=== PATIENT | female | born 1985 ===

== ENCOUNTER 2017-12-01 20:01 | Emergency (ER) | payer BC ==
[2017-12-01] MEDS ORDERED: Sodium Chloride 0.9% 1,000 ML IV STA (20:51)
[2017-12-01 21:05] LABS: URINE BILIRUBIN MODERATE (NEGATIVE); URINE BLOOD LARGE (NEGATIVE); URINE GLUCOSE (UA) NEGATIVE (NEGATIVE); URINE LEUKOCYTE ESTERASE SMALL Leu/uL (NEGATIVE); URINE PROTEIN 100 mg/dL (<30 mg/dL)
[2017-12-01 21:06] LABS: URINE APPEARANCE SLIGHT-CLOUDY (CLEAR); URINE COLOR YELLOW (YELLOW)
[2017-12-01 21:11] LABS: URINE EPITHELIAL CELLS MANY /hpf (0-5); URINE RBC 25 - 30 /hpf (0-2)
--- NOTE | 2017-12-01 21:18 | ED PDOC ---
Arrival/HPI - General Chief Complaint: GI Problem Time Seen by Provider: 12/01/17 20:02 Historian: Patient - History of Present Illness Narrative History of Present Illness (Text): 12/01/17 21:18 A 32 year old female with no significant past medical history presents to the emergency department complaining of nausea and vomiting since earlier today. Patient reports her daughter has similar complaints and was seen earlier. Patie nt states she was eating chicken with rice earlier today. Patient states she is feeling better presently with some mild nausea. Patient denies any fever, chills, chest pain, shortness of breath, nausea, vomiting, diarrhea, urinary symptoms, back pain, neck pain, headache, dizziness, or any other complaints. PMD: Henry Chris Time/Duration: Other (eariler today) Symptom Course: Improving Activities at Onset: Light Context: Home Past Medical History - Provider Review Nursing Documentation Reviewed: Yes - Cardiac Hx Cardiac Disorders: No - Pulmonary Hx Respiratory Disorders: No - Neurological Hx Neurological Disorder: No - HEENT Hx HEENT Disorder: No - Renal Hx Renal Disorder: No - Endocrine/Metabolic Hx Endocrine Disorders: No - Hematological/Oncological Hx Blood Disorders: No - Integumentary Hx Dermatological Disorder: No - Musculoskeletal/Rheumatological Hx Musculoskeletal Disorders: Yes Other/Comment: INFLAMMATION R FOOT - Gastrointestinal Hx Gastrointestinal Disorders: No - Genitourinary/Gynecological Hx Genitourinary Disorders: No - Psychiatric Hx Psychophysiologic Disorder: No Hx Substance Use: No - Surgical History Hx Section: Yes Family/Social History - Physician Review Nursing Documentation Reviewed: Yes Family/Social History: Unknown Family HX Smoking Status: Never Smoked Hx Alcohol Use: No Hx Substance Use: No Allergies/Home Meds Allergies/Adverse Reactions: Allergies No Known Allergies Allergy (Verified 12/01/17 22:01) Review of Systems - Physician Review All systems were reviewed & negative as marked: Yes - Review of Systems Constitutional: absent: Fevers, Night Sweats Respiratory: absent: SOB Cardiovascular: absent: Chest Pain Gastrointestinal: Nausea, Vomiting. absent: Diarrhea Genitourinary Female: absent: Urine Output Changes Musculoskeletal: absent: Back Pain, Neck Pain Neurological: absent: Headache, Dizziness Physical Exam Vital Signs Reviewed: Yes Vital Signs Temp Pulse Resp BP Pulse Ox 12/01/17 20:44 96 H 19 100 12/01/17 20:29 98.3 F 89 16 117/58 L 99 Temperature: Afebrile Blood Pressure: Hypotensive Pulse: Regular Respiratory Rate: Normal Appearance: Positive for: Well-Appearing, Non-Toxic, Comfortable Pain Distress: None Mental Status: Positive for: Alert and Oriented X 3 - Systems Exam Head: Present: Atraumatic, Normocephalic Pupils: Present: PERRL Extroacular Muscles: Present: EOMI Conjunctiva: Present: Normal Mouth: Present: Moist Mucous Membranes Neck: Present: Normal Range of Motion Respiratory/Chest: Present: Clear to Auscultation, Good Air Exchange. No: Respiratory Distress, Accessory Muscle Use Cardiovascular: Present: Regular Rate and Rhythm, Normal S1, S2. No: Murmurs Abdomen: No: Tenderness, Distention, Peritoneal Signs Back: Present: Normal Inspection Upper Extremity: Present: Normal Inspection. No: Cyanosis, Edema Lower Extremity: Present: Normal Inspection. No: Edema Neurological: Present: GCS=15, CN II-XII Intact, Speech Normal Skin: Present: Warm, Dry, Normal Color. No: Rashes Psychiatric: Present: Alert, Oriented x 3, Normal Insight, Normal Concentration Medical Decision Making ED Course and Treatment: 12/01/17 21:28 Impression: 32 year old presenting to the Emergency room complaining of nausea and vomiting. Plan: -- CBC -- Pepcid -- IV fluids -- Zofran -- Urine culture -- Reassess and disposition Progress Notes: 12/01/17 23:16 As per dye penetrant testing technician, abdominal ultrasound results shows a normal exam with no acute findings. - Lab Interpretations Lab Results: Lab Results 12/01/17 20:45: Urine HCG, Qual Negative 12/01/17 20:45: Urine Color Yellow, Urine Appearance Slight-cloudy, Urine pH 7.0, Ur Specific [place] 1.020, Urine Protein 100 H, Urine Glucose (UA) Negative, Urine Ketones Negative, Urine Blood Large H, Urine Nitrate Negative, Urine Bilirubin Moderate H, Urine Urobilinogen 1.0 H, Ur Leukocyte Esterase Small H, Urine RBC 25 - 30, Urine WBC 5 - 10, Ur Epithelial Cells Many - Medication Orders Current Medication Orders: Sodium Chloride (Sodium Chloride 0.9%) 1,000 mls @ 999 mls/hr IV .Q1H1M STA Stop: 12/01/17 21:51 Last Admin: 12/01/17 21:02 Dose: 999 mls/hr eMAR Start Stop Document 12/01/17 21:02 [facility] (Rec: 12/01/17 21:02 [email or web address]) Intravenous Solution Start Date 12/01/17 Start Time 21:02 End Date 12/01/17 End time 22:10 Total Infusion Time 68 Discontinued Medications Famotidine (Pepcid) 20 mg IVP STAT STA Stop: 12/01/17 20:52 Last Admin: 12/01/17 21:02 Dose: 20 mg IVP Administration Document 12/01/17 21:02 [facility] (Rec: 12/01/17 21:02 [email or web address]) Charges for Administration # of IVP Administrations 1 Ondansetron HCl (Zofran Inj) 4 mg IVP ONCE ONE Stop: 12/01/17 20:52 Last Admin: 12/01/17 21:02 Dose: 4 mg IVP Administration Document 12/01/17 21:02 [facility] (Rec[facility] 12[facility]01/17 21:03 [email or web address] Charges for Administration # of IVP Administrations 1 - Scribe Statement The provider has reviewed the documentation as recorded by the Laura Florentino All medical record entries made by the Eliazaribroberto were at my direction and personally dictated by me. I have reviewed the chart and agree that the record accurately reflects my personal performance of the history, physical exam, medical decision making, and the department course for this patient. I have also personally directed, reviewed, and agree with the discharge instructions and disposition. Disposition/Present on Arrival - Present on Arrival Any Indicators Present on Arrival: No History of DVT/PE: No History of Uncontrolled Diabetes: No Urinary Catheter: No History of Decub. Ulcer: No History Surgical Site Infection Following: None - Disposition Have Diagnosis and Disposition been Completed?: Yes Diagnosis: Gastritis, Nausea & vomiting Disposition: HOME/ ROUTINE Disposition Time: 01:15 Patient Plan: Discharge Condition: GOOD Discharge Instructions (ExitCare): Nausea and Vomiting, Adult (DC), Gastritis (DC) Additional Instructions: Clear liquids tonight only/advance to bland diet tomorrow as tolerated/medication as prescribed/follow up with your doctor this week/any worsening symptoms return to the emergency room Prescriptions: Ondansetron [Zofran Odt] 4 mg PO Q6 #12 odt Referrals: Henry Duron APN [Primary Care Provider] - Follow up with primary Forms: [employer] (Nepali)
[2017-12-01 21:19] LABS: HEMOGLOBIN 9.7 g/dL (12.0-16.0); MEAN CORPUSCULAR HEMOGLOBIN 20.2 pg (25.0-35.0); MEAN CORPUSCULAR HGB CONC 28.9 g/dl (31.0-37.0); MEAN PLATELET VOLUME 10.9 fl (7.0-11.0); RBC 4.8 10^6/uL (3.5-6.1); RED CELL DISTRIBUTION WIDTH 17.5 % (11.5-14.5); WHITE BLOOD COUNT 15.4 10^3/ul (4.5-11.0)
[2017-12-01 21:23] LABS: ALB/GLOB RATIO 1.5 (1.1-1.8); ALBUMIN 4.8 g/dL (3.0-4.8); ALT/SGPT 22 U/L (7-56); AST/SGOT 22 U/L (14-36); BLOOD UREA NITROGEN 15 mg/dL (7-21); CALCIUM 9.7 mg/dL (8.4-10.5); GFR NON-AFRICAN AMERICAN > 60; LIPASE 35 U/L (23-300)
[2017-12-02 01:24] VITALS: BP 127/61; PULSE 82; RESP 18; TEMP 98.4
[2017-12-02 01:26] VITALS: O2SAT 99
--- NOTE | 2017-12-02 12:15 | US ---
Date of service: 12/01/2017 HISTORY: vomiting COMPARISON: None. TECHNIQUE: Sonographic evaluation of the abdomen. FINDINGS: LIVER: Measures 18.3 cm. Diffusely increased echogenicity of the liver parenchyma. Consistent with fatty infiltration. Smooth contour. No mass. No biliary ductal dilatation. GALLBLADDER: Unremarkable. No gallstones. COMMON BILE DUCT: Measures 5 mm. No stones. No dilatation. PANCREAS: Unremarkable as visualized. No mass. No ductal dilatation. RIGHT KIDNEY: Measures 11.3cm. Normal echogenicity. No calculus, mass, or hydronephrosis. LEFT KIDNEY: Measures 11.4cm. Normal echogenicity. No calculus, mass, or hydronephrosis. SPLEEN: Normal in size and contour. No mass. AORTA: No aneurysmal dilatation. IVC: Unremarkable. OTHER FINDINGS: None. IMPRESSION: Minimal hepatomegaly with fatty infiltration of the liver. No evidence of cholelithiasis or cholecystitis.
== END 2017-12-02 01:20 | disposition home or self-care (01) ==
LOC: ED 20:01
DX: K29.70 Gastritis, unspecified, without bleeding (principal); R11.2 Nausea with vomiting, unspecified
CPT/HCPCS: 76700; 80053; 81001; 83690; 84703; 85027; 87086; 96361; 96374; 96375; 99284; J2405; J7030

== ENCOUNTER 2018-02-13 23:56 | Emergency (ER) | payer BC ==
[2018-02-14 00:43] VITALS: BMI 25.4
[2018-02-14 00:57] VITALS: TEMP 98.3
[2018-02-14] MEDS ORDERED: Atrop/Hyosc/Scopal/PB Elixir (120 ml) PO STA (01:07)
[2018-02-14] MEDS ORDERED: Alum-Mag Hydrox-Simethicone Susp (30 mL) PO STA (01:07)
--- NOTE | 2018-02-14 01:22 | ED PDOC ---
Arrival/HPI - General Historian: Patient - History of Present Illness Narrative History of Present Illness (Text): 02/14/18 01:16 32 year old M with Past medical history of anxiety, premenstrual syndrome, anemia presents with symptoms of 8/10 crampy epigastric abdominal pain that comes and goes that had started this am. Pt reports she had ate a meal this am consisting of chicken and flour along with coffee when she began noticing the symptoms. She reports trying tylenol for pain, which aggravated the pain. She reports that her anxiety may also have exacerbated the pain. She reports nausea, which she believes is 2/2 to pain. She denies any associated vomiting, consti pation or diarrhea. She denies fevers, chills, headache, dizziness, chest pain, palpitations, shortness of breath, dysuria. PMH: PMS, anxiety, anemia Allergies: pollen PSH: abdominal liposuction 2010, x 3 (2015,2005,1999), IUD [id number] month ago SH: denies smoking/alcohol Hosp: denies recent FH: Denies Meds: paroxetine 10mg, iron 02/14/18 01:23 02/14/18 01:24 Time/Duration: Prior to Arrival Symptom Onset: Gradual Symptom Course: [place] Quality: Cramping Severity Level: 8 <Nanette Marie - Last Filed: 02/14/18 02:16> <Dejuan Rey - Last Filed: 02/15/18 03:28> - General Chief Complaint: Abdominal Pain Time Seen by Provider: 02/13/18 23:56 Past Medical History - Provider Review Nursing Documentation Reviewed: Yes - Cardiac Hx Cardiac Disorders: No - Pulmonary Hx Respiratory Disorders: No - Neurological Hx Neurological Disorder: No - HEENT Hx HEENT Disorder: No - Renal Hx Renal Disorder: No - Endocrine/Metabolic Hx Endocrine Disorders: No - Hematological/Oncological Hx Blood Disorders: No - Integumentary Hx Dermatological Disorder: No - Musculoskeletal/Rheumatological Hx Musculoskeletal Disorders: Yes Other/Comment: INFLAMMATION R FOOT - Gastrointestinal Hx Gastrointestinal Disorders: No - Genitourinary/Gynecological Hx Genitourinary Disorders: No - Psychiatric Hx Psychophysiologic Disorder: No Hx Substance Use: No - Surgical History Hx Section: Yes - Anesthesia Hx Anesthesia: No <Nanette Marie - Last Filed: 02/14/18 02:16> Family/Social History - Physician Review Nursing Documentation Reviewed: Yes Family/Social History: No Known Family HX Smoking Status: Never Smoked Hx Alcohol Use: No Hx Substance Use: No <Nanette Marie - Last Filed: 02/14/18 02:16> Allergies/Home Meds <Nanette Marie - Last Filed: 02/14/18 02:16> <KodyDejuan james - Last Filed: 02/15/18 03:28> Allergies/Adverse Reactions: Allergies No Known Allergies Allergy (Verified 02/14/18 00:40) Home Medications: Home Meds Medication Instructions Recorded Confirmed Ferrous Sulfate [Feosol] 325 mg PO DAILY 02/14/18 02/14/18 PARoxetine [Paxil] 10 mg PO DAILY 02/14/18 02/14/18 Review of Systems - Review of Systems Constitutional: Normal Eyes: Normal ENT: Normal Respiratory: Normal Cardiovascular: Normal Gastrointestinal: Abdominal Pain, Nausea. absent: Constipation, Diarrhea, Vomiting Genitourinary Female: Normal Musculoskeletal: Normal Skin: Normal Neurological: Normal Endocrine: Normal Hemo/Lymphatic: Normal Psychiatric: Anxiety <Nanette Marie Last Filed: 02/14/18 02:16> Physical Exam Vital Signs Reviewed: Yes Vital Signs Temp Pulse Resp BP Pulse Ox 02/14/18 00:50 98.3 F 75 16 121/89 98 Temperature: Afebrile Blood Pressure: Normal Pulse: Regular Respiratory Rate: Normal Appearance: Positive for: Well-Appearing, Non-Toxic, Comfortable Pain Distress: None Mental Status: Positive for: Alert and Oriented X 3 - Systems Exam Head: Present: Atraumatic, Normocephalic Pupils: Present: PERRL Extroacular Muscles: Present: EOMI Conjunctiva: Present: Normal Mouth: Present: Moist Mucous Membranes Neck: Present: Normal Range of Motion Respiratory/Chest: Present: Clear to Auscultation, Good Air Exchange. No: Respiratory Distress, Accessory Muscle Use Cardiovascular: Present: Regular Rate and Rhythm, Normal S1, S2. No: Murmurs Abdomen: Present: Tenderness (epigastric). No: Distention, Peritoneal Signs, McBurney's Point Tender, Rovsing's Sign Present Back: Present: Normal Inspection Upper Extremity: Present: Normal Inspection. No: Cyanosis, Edema Lower Extremity: Present: Normal Inspection. No: Edema Neurological: Present: GCS=15, CN II-XII Intact, Speech Normal Skin: Present: Warm, Dry, Normal Color. No: Rashes Psychiatric: Present: Alert, Oriented x 3, Normal Insight, Normal Concentration <Nanette Marie - Last Filed: 02/14/18 02:16> Vital Signs Temp Pulse Resp BP Pulse Ox 02/14/18 00:50 98.3 F 75 16 121/89 98 <Dejuan Rey - Last Filed: 02/15/18 03:28> Medical Decision Making ED Course and Treatment: 02/14/18 01:26 Impression: 32 year old F with Past medical history of anxiety, PMS, anemia presents with 8/10 intermittent epigastric abdominal pain Differential diagnosis included but not limited to viral gastritis constipation biliary colic Plan: labs antiemetic, antacid, laxative u/a POC test chest xray reassess & dispo Prior visits; notes & results from prior visits were reviewed. Pt was last seen in ER on Progress Notes: 02/14/18 02:16 Pt reassessed. Symptoms improved after , pepcid and maalox treatment. P - RAD Interpretation Radiology Orders: 02/14/18 01:07 CHEST PORTABLE [RAD] Stat - Medication Orders Current Medication Orders: Discontinued Medications Al Hydrox/Mg Hydrox/Simethicone (Maalox Plus 30 Ml) 30 ml PO STAT STA Stop: 02/14/18 01:08 Belladonna/Phenobarbital ( Elixir) 10 ml PO STAT STA Stop: 02/14/18 01:08 Famotidine (Pepcid) 20 mg IVP STAT STA Stop: 02/14/18 01:08 <Nanette Marie - Last Filed: 02/14/18 02:16> - Lab Interpretations Lab Results: 02/14/18 01:25 02/14/18 01:25 Lab Results 02/14/18 01:25: Sodium 138, Potassium 3.1 L, Chloride 107, Carbon Dioxide 23, Anion Gap 12, BUN 11, Creatinine 0.6 L, Est GFR ( Amer) > 60, Est GFR (Non-Af Amer) > 60, Random Glucose 97, Calcium 9.0, Magnesium 2.0, Total Bilirubin 0.5, AST 19, ALT 23, Alkaline Phosphatase 62, Total Protein 7.4, Albumin 4.1, Globulin 3.4, Albumin/Globulin Ratio 1.2, Lipase 31 02/14/18 01:25: WBC 8.0, RBC 4.40, Hgb 8.9 L, Hct 30.4 L, MCV 69.1 L, MCH 20.2 L , MCHC 29.3 L, RDW 17.5 H, Plt Count 239, MPV 10.0, Gran % 62.1, Lymph % (Auto) 29.0, [place] % (Auto) 6.4 H, Eos % (Auto) 2.1, Baso % (Auto) 0.4, Gran # 4.96, Lymph # (Auto) 2.3, [place] # (Auto) 0.5, Eos # (Auto) 0.2, Baso # (Auto) 0.03 02/14/18 00:50: Urine Color Yellow, Urine Appearance Clear, Urine pH 6.0, Ur Specific [place] 1.025, Urine Protein Negative, Urine Glucose (UA) Negative, U rine Ketones Trace H, Urine Blood Negative, Urine Nitrate Negative, Urine Bilirubin Negative, Urine Urobilinogen 0.2, Ur Leukocyte Esterase Small H, Urine RBC 0 - 2, Urine WBC 2 - 5, Ur Epithelial Cells 1 - 3, Urine Bacteria Occ, Urine Other Mucus, Urine HCG, Qual Negative - RAD Interpretation Radiology Orders: 02/14/18 01:07 CHEST PORTABLE [RAD] Stat - Medication Orders Current Medication Orders: Cephalexin Monohydrate (Keflex) 500 mg PO STAT STA; Protocol Stop: 02/14/18 02:24 Discontinued Medications Al Hydrox/Mg Hydrox/Simethicone (Maalox Plus 30 Ml) 30 ml PO STAT STA Stop: 02/14/18 01:08 Last Admin: 02/14/18 01:32 Dose: 30 ml Belladonna/Phenobarbital ( Elixir) 10 ml PO STAT STA Stop: 02/14/18 01:08 Last Admin: 02/14/18 01:31 Dose: 10 ml Famotidine (Pepcid) 20 mg IVP STAT STA Stop: 02/14/18 01:08 Last Admin: 02/14/18 01:32 Dose: 20 mg IVP Administration Document 02/14/18 01:32 CNR (Rec: 02/14/18 01:32 CNR [id number]) Charges for Administration # of IVP Administrations 1 <Dejuan Rey - Last Filed: 02/15/18 03:28> - PA / PAPER TESTING SUPERVISOR / Resident Statement TAWANA has reviewed & agrees with the documentation as recorded. / has examined the patient and agrees with the treatment plan. <Nanette Marie - Last Filed: 02/14/18 02:16> Disposition/Present on Arrival - Present on Arrival Any Indicators Present on Arrival: No History of DVT/PE: No History of Uncontrolled Diabetes: No Urinary Catheter: No History of Decub. Ulcer: No History Surgical Site Infection Following: None <Nanette Marie - Last Filed: 02/14/18 02:16> - Disposition Have Diagnosis and Disposition been Completed?: Yes Disposition Time: 02:31 Patient Plan: Discharge <Dejuan Rey - Last Filed: 02/15/18 03:28> - Disposition Diagnosis: Gastritis, Anxiety, UTI (urinary tract infection) Disposition: HOME/ ROUTINE Condition: IMPROVED Discharge Instructions (ExitCare): Anxiety, Adult (DC), Gastritis (DC) Print Language: INDONESIAN Prescriptions: Cephalexin [Keflex] 500 mg PO BID 5 Days #10 capsule Ibuprofen [Motrin Tab] 600 mg PO Q6H PRN 6 Days #24 tab PRN Reason: Muscle Spasm Referrals: Gena Weaver MD [Medical Doctor] - Follow up with primary [facility] [place] [Outside] - Follow up with primary Forms: [employer] (Djiboutian)
[2018-02-14 01:23] LABS: URINE BILIRUBIN NEGATIVE (NEGATIVE); URINE BLOOD NEGATIVE (NEGATIVE); URINE GLUCOSE (UA) NEGATIVE (NEGATIVE); URINE LEUKOCYTE ESTERASE SMALL Leu/uL (NEGATIVE); URINE PROTEIN NEGATIVE mg/dL (<30 mg/dL); URINE UROBILINOGEN 0.2 E.U./dL (<1 E.U./dL)
[2018-02-14 01:34] LABS: HCG,QUALITATIVE URINE NEGATIVE (NEGATIVE); URINE APPEARANCE CLEAR (CLEAR); URINE COLOR YELLOW (YELLOW)
[2018-02-14 01:36] LABS: URINE RBC 0 - 2 /hpf (0-2)
[2018-02-14 01:37] LABS: URINE BACTERIA OCC /hpf
[2018-02-14 01:48] LABS: BASO # 0.03 K/mm3 (0.0-2.0); BASO % 0.4 % (0.0-3.0); EOS # 0.2 (0.0-0.7); EOS % 2.1 % (1.5-5.0); GRAN # 4.96 (1.4-6.5); GRAN % 62.1 % (50.0-68.0); HEMOGLOBIN 8.9 g/dL (12.0-16.0); LYMPH # 2.3 (1.2-3.4); MEAN CELL VOLUME 69.1 fl (80.0-105.0); MEAN CORPUSCULAR HEMOGLOBIN 20.2 pg (25.0-35.0); MEAN CORPUSCULAR HGB CONC 29.3 g/dl (31.0-37.0); MONO # 0.5 (0.1-0.6); MONO % 6.4 % (1.0-6.0); RBC 4.4 10^6/uL (3.5-6.1); RED CELL DISTRIBUTION WIDTH 17.5 % (11.5-14.5)
[2018-02-14 02:00] LABS: ALB/GLOB RATIO 1.2 (1.1-1.8); ALBUMIN 4.1 g/dL (3.0-4.8); ALT/SGPT 23 U/L (7-56); AST/SGOT 19 U/L (14-36); BLOOD UREA NITROGEN 11 mg/dL (7-21); GFR NON-AFRICAN AMERICAN > 60; LIPASE 31 U/L (23-300)
[2018-02-14 02:44] VITALS: BP 128/81; PULSE 68; RESP 17; O2SAT 100
--- NOTE | 2018-02-14 09:14 | RAD ---
Date of service: 02/14/2018 HISTORY: abdominal pain COMPARISON: No prior. FINDINGS: LUNGS: No active pulmonary disease. PLEURA: No significant pleural effusion identified, no pneumothorax apparent. CARDIOVASCULAR: No aortic atherosclerotic calcification present. Normal cardiac size. No pulmonary vascular congestion. OSSEOUS STRUCTURES: No significant abnormalities. VISUALIZED UPPER ABDOMEN: Normal. OTHER FINDINGS: None. IMPRESSION: No active disease.
== END 2018-02-14 02:41 | disposition home or self-care (01) ==
LOC: ED 23:56
DX: K29.70 Gastritis, unspecified, without bleeding (principal); F41.9 Anxiety disorder, unspecified; N39.0 Urinary tract infection, site not specified; D64.9 Anemia, unspecified